=== PATIENT | female | born 2000 | race Hispanic/Latino ===

== ENCOUNTER 2023-04-08 09:43 | Outpatient (CLI) | payer OTHER | END 2023-04-08 09:44 | disposition home or self-care (01) | LOC: CSHULT 09:43 | PROVIDERS: ATTEND Family Medicine | DX: Z34.02 Encounter for supervision of normal first pregnancy, second trimester (principal); Z3A.19 19 weeks gestation of pregnancy | CPT/HCPCS: 76805 ==

== ENCOUNTER 2023-06-02 21:14 | Inpatient (IN) | payer OTHER ==
[2023-06-02] MEDS ORDERED: hydrALAZINE 20 MG/ML VIAL SLOW IVP PRN (22:01)
[2023-06-02] MEDS: Lactated Ringer's 1,000 ML IV SCH (22:27)
[2023-06-02 22:37] LABS: Bilirubin Neg (Negative); Blood, Urine Negative (Negative); Clarity Clear (Clear); Glucose, Urine (Dipstick) Normal (Negative); Ketone, Urine Negative (Negative); Leukocyte 25 (Negative); Nitrite Negative (Negative); Protein, Urine (Dipstick) 30 mg/dl (Neg-Trace); Urobilinogen Normal mg/dL (Less than 2)
[2023-06-02 23:02] LABS: Bacteria/HPF 2+ HPF (None Seen); CAUTI Indications for Culture Pregnancy; RBC/HPF 0-3 HPF (0-3); Squamous Epithelial 0-3 HPF (0-3)
[2023-06-02 23:03] LABS: Urine Culture Reflex Yes Yes
[2023-06-02 23:10] LABS: #Eosinphils 0.1 10x3/uL (0.0-0.5); #Monocytes 0.9 10x3/uL (0.0-1.1); #Neutrophils 9.2 10x3/uL (1.5-8.4); %Basophils 0.3 % (0.0-2.0); %Eosinophils 0.5 % (0.0-6.0); %Lymphocytes 22.9 % (18.0-47.0); %Monocytes 6.6 % (0.0-10.0); ALT (SGPT) 29 U/L (8-55); AST (SGOT) 20 U/L (5-34); Albumin 3.4 g/dL (3.5-5.0); Alkaline Phosphatase 136 U/L (40-110); Anion Gap 12 mmol/L (10-20); BUN (Urea Nitrogen) 11 mg/dL (7.0-18.7); Bilirubin, Total 0.2 mg/dL (0.2-1.2); Calc. Creatinine Clearance 153 mL/min (70-130); Calcium 9.2 mg/dL (7.8-10.44); Carbon Dioxide 21 mmol/L (22-29); Chloride 106 mmol/L (98-107); Estimated GFR 125; Globulin 3.7 g/dL (2.4-3.5); Glucose 97 mg/dL (70-105); Hematocrit 35.4 % (34.9-44.5); Mean Corpuscular HGB CONC 33.9 g/dL (32.0-36.0); Mean Corpuscular Hemoglobin 25.7 pg (27.0-33.0); Mean Corpuscular Volume 75.8 fl (81.6-98.3); Mean Platelet Volume 9.5 fl (7.4-10.4); Platelet Count 248 10x3/uL (150-450); Potassium 3.8 mmol/L (3.5-5.1); Protein, Total 7.1 g/dL (6.0-8.3); RBC Distribution Width 13.6 % (11.5-14.5); Red Blood Cell (RBC) Count 4.67 10x6/uL (3.90-5.03); Sodium 135 mmol/L (136-145); White Blood Cell (WBC) Count 13.3 10x3/uL (3.5-10.5)
[2023-06-03] MEDS: cefTRIAXone\\ROCEPHIN 1 GM in Sodium Chloride 0.9% 100 ML IVPB SCH (00:11)
[2023-06-03] MEDS ORDERED: Calcium Gluc 4.6 MEQ/10 ML (100 MG/ML) SLOW IVP PRN (00:25)
[2023-06-03] MEDS ORDERED: Labetalol HCl 100 MG/20 ML VIAL SLOW IVP PRN ×2 (00:25)
[2023-06-03] MEDS ORDERED: Lorazepam 2 MG/ML VIAL SLOW IVP PRN (00:25)
[2023-06-03] MEDS ORDERED: Sodium Chloride 0.9% 1,000 ML IV SCH (00:30)
[2023-06-03] MEDS: Acetaminophen 500 MG TAB PO PRN ×2 (03:26→16:52)
[2023-06-03 04:37] LABS: #Eosinphils 0.1 10x3/uL (0.0-0.5); #Monocytes 0.2 10x3/uL (0.0-1.1); #Neutrophils 7.1 10x3/uL (1.5-8.4); %Basophils 0.3 % (0.0-2.0); %Eosinophils 0.8 % (0.0-6.0); %Monocytes 2.5 % (0.0-10.0); %Neutrophils 74.3 % (40.0-75.0); Hematocrit 33.9 % (34.9-44.5); Hemoglobin 11.5 g/dL (12.0-15.5); Mean Corpuscular HGB CONC 33.9 g/dL (32.0-36.0); Mean Corpuscular Volume 76.5 fl (81.6-98.3); Platelet Count 225 10x3/uL (150-450); RBC Distribution Width 13.5 % (11.5-14.5); Red Blood Cell (RBC) Count 4.43 10x6/uL (3.90-5.03); White Blood Cell (WBC) Count 9.6 10x3/uL (3.5-10.5)
[2023-06-03 04:56] LABS: ALT (SGPT) 26 U/L (8-55); AST (SGOT) 19 U/L (5-34); Alkaline Phosphatase 117 U/L (40-110); Anion Gap 14 mmol/L (10-20); BUN (Urea Nitrogen) 10 mg/dL (7.0-18.7); Bilirubin, Total 0.2 mg/dL (0.2-1.2); Calc. Creatinine Clearance 162 mL/min (70-130); Calcium 8.5 mg/dL (7.8-10.44); Carbon Dioxide 19 mmol/L (22-29); Chloride 107 mmol/L (98-107); Estimated GFR 126; Globulin 3.2 g/dL (2.4-3.5); Glucose 125 mg/dL (70-105); Potassium 3.7 mmol/L (3.5-5.1); Protein, Total 6.2 g/dL (6.0-8.3); Sodium 136 mmol/L (136-145)
[2023-06-03] MEDS: metroNIDAZOLE 500 MG TAB PO SCH (06:07)
[2023-06-03] MEDS: Lactated Ringer's 1,000 ML IV SCH (06:53)
[2023-06-03] MEDS: Morphine 4 MG/ML VIAL SLOW IVP PRN (06:54)
[2023-06-03] MEDS ORDERED: hydrALAZINE 20 MG/ML VIAL SLOW IVP PRN (07:23)
[2023-06-03] MEDS ORDERED: Promethazine HCl 25 MG/ML VIAL IM PRN (07:23)
[2023-06-03] MEDS ORDERED: metroNIDAZOLE 500 MG TAB PO SCH (09:00)
[2023-06-03] MEDS: cefTRIAXone\\ROCEPHIN 2 GM in Sodium Chloride 0.9% 100 ML IVPB SCH (11:55)
[2023-06-03 13:14] LABS: Uric Acid 5.4 mg/dL (2.6-6.0)
[2023-06-03] MEDS: Ondansetron PF 4 MG/2 ML Vial ONE (13:41)
[2023-06-03] MEDS: Azithromycin 250 MG TAB PO SCH (17:49)
[2023-06-03 22:11] LABS: Chlam.trachomatis by PCR,Urine Not Detected (NotDetected); GC N.gonorrhoeae PCR,UrineVOID Not Detected (NotDetected)
[2023-06-04] MEDS ORDERED: cefTRIAXone\\ROCEPHIN 1 GM in Sodium Chloride 0.9% 100 ML IVPB SCH (00:30)
[2023-06-04] MEDS: Ondansetron PF 4 MG/2 ML Vial IVP PRN (01:47)
[2023-06-04] MEDS: Guaifenesin DM 100-10/5 ML UDCUP PO PRN (12:41)
[2023-06-04] MEDS: HYDROcodone/Acetaminophen 5/325 mg Tablet PO SCH (18:16)
[2023-06-04] MEDS: hydrALAZINE 20 MG/ML VIAL SLOW IVP PRN (19:00)
[2023-06-04] MEDS: Betamet Acet/Betamet Na Ph 30 MG/5 ML VIAL ONE (20:40)
[2023-06-04 21:25] LABS: Bilirubin Neg (Negative); Blood, Urine Negative (Negative); Clarity Clear (Clear); Glucose, Urine (Dipstick) Normal (Negative); Ketone, Urine Negative (Negative); Leukocyte Negative (Negative); Nitrite Negative (Negative); Protein, Urine (Dipstick) 100 mg/dl (Neg-Trace); Urobilinogen Normal mg/dL (Less than 2); pH, Urine 6.5 (5.0-9.0)
[2023-06-04 21:39] LABS: Bacteria/HPF Rare-Few HPF (None Seen); CAUTI Indications for Culture Pregnancy; RBC/HPF 0-3 HPF (0-3); WBC/HPF 0-3 HPF (0-3)
[2023-06-04 21:40] LABS: Urine Culture Reflex Yes Yes
[2023-06-05 00:34] LABS: #Basophils 0.1 10x3/uL (0.0-0.2); #Eosinphils 0.2 10x3/uL (0.0-0.5); #Monocytes 0.5 10x3/uL (0.0-1.1); #Neutrophils 13.9 10x3/uL (1.5-8.4); %Basophils 0.3 % (0.0-2.0); %Eosinophils 1.3 % (0.0-6.0); %Monocytes 3.3 % (0.0-10.0); Hematocrit 34.6 % (34.9-44.5); Mean Corpuscular HGB CONC 34.7 g/dL (32.0-36.0); Mean Corpuscular Volume 74.9 fl (81.6-98.3); Platelet Count 214 10x3/uL (150-450); RBC Distribution Width 13.5 % (11.5-14.5); Red Blood Cell (RBC) Count 4.62 10x6/uL (3.90-5.03); White Blood Cell (WBC) Count 15.9 10x3/uL (3.5-10.5)
[2023-06-05 00:46] LABS: ALT (SGPT) 31 U/L (8-55); AST (SGOT) 25 U/L (5-34); Albumin 3.1 g/dL (3.5-5.0); Alkaline Phosphatase 122 U/L (40-110); Anion Gap 12 mmol/L (10-20); Bilirubin, Total 0.2 mg/dL (0.2-1.2); Calc. Creatinine Clearance 160 mL/min (70-130); Calcium 8.6 mg/dL (7.8-10.44); Carbon Dioxide 18 mmol/L (22-29); Chloride 105 mmol/L (98-107); Estimated GFR 126; Globulin 3.3 g/dL (2.4-3.5); Glucose 100 mg/dL (70-105); Potassium 4.1 mmol/L (3.5-5.1); Protein, Total 6.4 g/dL (6.0-8.3); Sodium 131 mmol/L (136-145)
[2023-06-05 01:01] LABS: BUN (Urea Nitrogen) 6 mg/dL (7.0-18.7)
[2023-06-05 01:09] LABS: SARS-CoV-2 NAA Rapid Test Not Detected (NotDetected)
[2023-06-05] MEDS: Oseltamivir 75 MG CAP PO SCH ×2 (01:38→08:59)
[2023-06-05] MEDS: Vancomycin 1 GM in Sodium Chloride 0.9% 250 ML 250 ML IVPB SCH (04:49)
[2023-06-05] MEDS: Furosemide 20 MG (2 mL) VIAL SLOW IVP SCH (10:20)
[2023-06-05 12:13] LABS: Chlamydia trachomatis by NAA Negative (Negative)
[2023-06-05 12:47] LABS: Fetal Membranes Rupture No Membranes Rupture (No Rupture)
[2023-06-05 13:18] LABS: Syphilis Antibody Index 30.54 S/CO (<1.00 Non-Reactive)
[2023-06-05] MEDS: Labetalol HCl 100 MG TAB PO SCH (14:24)
[2023-06-05] MEDS: Azithromycin 250 MG TAB PO SCH (15:12)
[2023-06-05 17:24] LABS: Syphilis Antibody REACTIVE (Nonreactive)
[2023-06-05] MEDS: Betamet Acet/Betamet Na Ph 30 MG/5 ML VIAL IM SCH (21:16)
[2023-06-06] MEDS: Bicillin LA 2.4 MILL.UNITS/4 ML SYRINGE IM SCH (11:25)
[2023-06-06] MEDS: Azithromycin 250 MG TAB PO SCH (16:59)
[2023-06-06 17:14] LABS: HSV-1 IgG Type Specific <0.91 index (0.00-0.90); HSV-2 IgG Type Specific 6.36 index (0.00-0.90)
[2023-06-06] MEDS: Labetalol HCl 100 MG TAB PO SCH (23:39)
[2023-06-07] MEDS: Vancomycin 1 GM in Sodium Chloride 0.9% 250 ML 250 ML IVPB SCH (01:13)
[2023-06-07] MEDS: Labetalol HCl 100 MG TAB PO SCH ×3 (05:36→19:31)
[2023-06-07 07:23] LABS: Hematocrit 33.2 % (34.9-44.5); Hemoglobin 11.4 g/dL (12.0-15.5); Mean Corpuscular HGB CONC 34.3 g/dL (32.0-36.0); Mean Corpuscular Volume 75.6 fl (81.6-98.3); Mean Platelet Volume 10.6 fl (7.4-10.4); Platelet Count 212 10x3/uL (150-450); RBC Distribution Width 13.7 % (11.5-14.5); Red Blood Cell (RBC) Count 4.39 10x6/uL (3.90-5.03); White Blood Cell (WBC) Count 14.7 10x3/uL (3.5-10.5)
[2023-06-07 07:52] LABS: ALT (SGPT) 31 U/L (8-55); AST (SGOT) 27 U/L (5-34); Albumin 2.6 g/dL (3.5-5.0); Alkaline Phosphatase 100 U/L (40-110); Anion Gap 11 mmol/L (10-20); BUN (Urea Nitrogen) 11 mg/dL (7.0-18.7); Bilirubin, Total 0.2 mg/dL (0.2-1.2); Calc. Creatinine Clearance 165 mL/min (70-130); Calcium 7.7 mg/dL (7.8-10.44); Carbon Dioxide 21 mmol/L (22-29); Chloride 107 mmol/L (98-107); Estimated GFR 127; Glucose 101 mg/dL (70-105); Potassium 3.8 mmol/L (3.5-5.1); Protein, Total 5.6 g/dL (6.0-8.3); Sodium 135 mmol/L (136-145)
[2023-06-07] MEDS: Azithromycin 250 MG TAB PO SCH (08:46)
[2023-06-07] MEDS: hydrALAZINE 20 MG/ML VIAL SLOW IVP PRN (12:18)
[2023-06-08] MEDS: Magnesium Sulfate 20 gm/500 ml 20 GM/500 ML BAG ONE (13:54)
[2023-06-08] MEDS: hydrALAZINE 20 MG/ML VIAL ONE (13:54)
[2023-06-08] MEDS ORDERED: Bicitra 30 ML UDCUP PO PRN (14:58)
[2023-06-08] MEDS ORDERED: Famotidine/PF 20 mg/2ml Vial SLOW IVP PRN (14:58)
[2023-06-08 16:15] LABS: Vancomycin, Trough 18.2 ug/mL
[2023-06-08 17:41] LABS: Analyzer IN Cardio CS ICU; Base Excess (BEa) -5.1 mEq/L (-2.0 to +3.0); CO2 Tension 48.9 mmHg (35.0-45.0); Calcium, Ionized (arterial) 1.16 mmol/L (1.12-1.30); Carboxyhemoglobin (COHb) 0.3 gm% (0.0-3.0); Critical Notified Whom: SPESC; Hematocrit-ABG 37 % (36.0-47.0); Hemoglobin (Hb) 12.6 g/dL (12.0-16.0); O2 Tension (PaO2), arterial 72.7 mmHg (80.0-100.0); Potassium - ABG Lab 3.95 mmol/L (3.70-5.30); Puncture Site RRA
[2023-06-08 17:44] LABS: ALV-art Gradient 151.375 mmHg (0-20)
[2023-06-08] MEDS ORDERED: Electrolyte Replacement Protocol 1 EACH FS PRN (17:44)
[2023-06-08] MEDS ORDERED: Ventilator Sedation Protocol 1 EACH FS SCH (17:45)
[2023-06-08] MEDS: Morphine PF 10 MG/10 ML VIAL ONE (18:11)
[2023-06-08] MEDS: Ketorolac Tromethamine 30 MG (1 mL) VIAL ONE (18:12)
[2023-06-08] MEDS: Ondansetron PF 4 MG/2 ML Vial ONE (18:12)
[2023-06-08] MEDS: Dexamethasone 4 mg/ml Vial ONE (18:12)
[2023-06-08] MEDS: Glycopyrrolate 0.2 MG/ML 5 ML SYRINGE ONE (18:12)
[2023-06-08] MEDS: ePHEDrine Sulfate 50 MG/10 ML VIAL ONE (18:12)
[2023-06-08] MEDS ORDERED: Propofol BOLUS 1,000 MG/100 ML VIAL IV PRN (18:30)
[2023-06-08] MEDS ORDERED: Lorazepam 2 MG/ML VIAL SLOW IVP PRN ×2 (18:30→19:31)
[2023-06-08] MEDS ORDERED: Fentanyl BOLUS 250 ML IVPB PRN (18:30)
[2023-06-08] MEDS ORDERED: Morphine 2 MG/ML VIAL SLOW IVP PRN (18:30)
[2023-06-08] MEDS: FENTANYL 2,000MCG/100-0.9%NACL 100 ML IVPB SCH (18:40)
[2023-06-08] MEDS: Oxytocin 10 UNITS/ML VIAL ONE (18:47)
[2023-06-08] MEDS: Phenylephrine 40 MG/NS 250 ML 250 ML ONE (18:47)
[2023-06-08] MEDS: PHENYLEPHRINE-NS 100 MCG/ML 10 ML SYRINGE ONE (18:48)
[2023-06-08] MEDS: fentaNYL 50 mcg/mL 1 mL Vial ONE ×2 (18:51→18:52)
[2023-06-08] MEDS: PROPOFOL 20 ML ONE (18:51)
[2023-06-08] MEDS: Rocuronium Bromide 10 MG/ML (10ML VIAL) ONE ×2 (18:52)
[2023-06-08] MEDS: Midazolam HCl 2 mg/2 ml Vial ONE (18:52)
[2023-06-08] MEDS ORDERED: Bisacodyl 10 MG SUPP PR PRN (19:31)
[2023-06-08] MEDS ORDERED: Labetalol HCl 100 MG/20 ML VIAL SLOW IVP PRN ×2 (19:31)
[2023-06-08] MEDS ORDERED: hydrALAZINE 20 MG/ML VIAL SLOW IVP PRN ×2 (19:31)
[2023-06-08] MEDS ORDERED: Calcium Gluc 4.6 MEQ/10 ML (100 MG/ML) SLOW IVP PRN (19:31)
[2023-06-08] MEDS: Labetalol HCl 100 MG/20 ML VIAL ONE (19:56)
[2023-06-08] MEDS: Ipratropium/Albuterol 3 ML NEB NEB SCH (20:35)
[2023-06-08] MEDS: Labetalol HCl 100 MG/20 ML VIAL SLOW IVP SCH (20:47)
[2023-06-08] MEDS: Ferrous Sulfate 325 MG TAB PO SCH (21:26)
[2023-06-08] MEDS: Docusate 100 MG CAP PO SCH (21:26)
[2023-06-08] MEDS: Oseltamivir 6 MG/ML ORAL SUSP PO SCH (21:50)
[2023-06-08] MEDS: Magnesium Sulfate 20 gm/500 ml 20 GM/500 ML BAG IVPB SCH (23:52)
[2023-06-09] MEDS: Ketorolac Tromethamine 30 MG (1 mL) VIAL IVP SCH (00:27)
[2023-06-09] MEDS: Propofol 1,000 MG/100 ML VIAL IV PRN (03:04)
[2023-06-09 03:23] LABS: Hematocrit 31.9 % (34.9-44.5); Hemoglobin 10.8 g/dL (12.0-15.5); Mean Corpuscular HGB CONC 33.9 g/dL (32.0-36.0); Mean Corpuscular Hemoglobin 25.9 pg (27.0-33.0); Mean Corpuscular Volume 76.5 fl (81.6-98.3); Mean Platelet Volume 9.7 fl (7.4-10.4); Platelet Count 210 10x3/uL (150-450); RBC Distribution Width 13.8 % (11.5-14.5); Red Blood Cell (RBC) Count 4.17 10x6/uL (3.90-5.03); White Blood Cell (WBC) Count 24.6 10x3/uL (3.5-10.5)
[2023-06-09 03:33] LABS: MDiff Complete? YES
[2023-06-09 03:45] LABS: ALT (SGPT) 28 U/L (8-55); AST (SGOT) 22 U/L (5-34); Albumin 2.4 g/dL (3.5-5.0); Alkaline Phosphatase 95 U/L (40-110); Anion Gap 12 mmol/L (10-20); BUN (Urea Nitrogen) 15 mg/dL (7.0-18.7); Bilirubin, Total 0.2 mg/dL (0.2-1.2); Calc. Creatinine Clearance 146 mL/min (70-130); Calcium 7.1 mg/dL (7.8-10.44); Carbon Dioxide 20 mmol/L (22-29); Chloride 108 mmol/L (98-107); Estimated GFR 122; Globulin 2.5 g/dL (2.4-3.5); Glucose 131 mg/dL (70-105); Potassium 4.8 mmol/L (3.5-5.1); Protein, Total 4.9 g/dL (6.0-8.3); Sodium 135 mmol/L (136-145)
[2023-06-09 04:01] LABS: Critical Call Chemistry IMAZ.TPP @0350; Magnesium 7.4 mg/dL (1.6-2.6)
[2023-06-09 04:09] LABS: Actual Bicarbonate (HCO3a) 22.6 mEq/L (22-28); Analyzer IN Cardio CS ICU; Base Excess (BEa) -2.6 mEq/L (-2.0 to +3.0); CO2 Tension 40.4 mmHg (35.0-45.0); Calcium, Ionized (arterial) 1.08 mmol/L (1.12-1.30); Carboxyhemoglobin (COHb) 0.3 gm% (0.0-3.0); Critical Notified By: CP.PH; Hematocrit-ABG 34 % (36.0-47.0); Hemoglobin (Hb) 11.5 g/dL (12.0-16.0); Potassium - ABG Lab 4.63 mmol/L (3.70-5.30); Puncture Site LBA; RapidComm Collect By CP.PH; pH, Arterial 7.365 (7.35-7.45)
[2023-06-09 05:00] LABS: Band 11 % (5-11); Lymphocytes 9 % (21-51); Metamyelocyte 1 % (0-0); Neutrophil 79 % (42-75)
[2023-06-09 05:03] LABS: Microcytosis SLIGHT = 6-15 cells (100X) (0-5/hpf); Platelet Adequacy Comment Appears Adequate; Polychromasia SLIGHT = 2-3 cells (100X) (0-2/hpf)
[2023-06-09] MEDS ORDERED: Azithromycin 250 MG in Syringe 0 ML IVPB SCH (09:00)
[2023-06-09] MEDS: Azithromycin 250 MG, Admixture Fee 1 EACH in Sodium Chloride 0.9% 250 ML 250 ML IVPB SCH (09:55)
[2023-06-09] MEDS: Boostrix 0.5 ML (Tdap) VIAL (>/=7 yrs of age) IM ONE (12:04)
[2023-06-09] MEDS: Labetalol HCl 100 MG/20 ML VIAL SLOW IVP SCH (12:06)
[2023-06-09 14:51] LABS: Critical Call Chemistry NUR.MBS AT 14:48; Magnesium 8.3 mg/dL (1.6-2.6)
[2023-06-09] MEDS: Labetalol HCl 100 MG/20 ML VIAL SLOW IVP PRN (17:29)
[2023-06-09] MEDS: Labetalol HCl 200 MG TAB PO SCH (21:32)
[2023-06-09] MEDS: Lisinopril 10 MG TAB PO SCH (21:33)
[2023-06-09] MEDS: Oseltamivir 75 MG CAP PO SCH (21:34)
[2023-06-09] MEDS: Calcium Carbonate 500 MG ChewTAB PO PRN (21:41)
[2023-06-09] MEDS: DC Sedation Protocol FS ONE (21:52)
[2023-06-09] MEDS: Famotidine 20 MG TAB PO SCH (23:04)
[2023-06-09] MEDS: HYDROcodone/Acetaminophen 5/325 mg Tablet PO PRN (23:04)
[2023-06-10] MEDS: Simethicone Chewable 80 MG TAB PO PRN (09:07)
[2023-06-10] MEDS: HYDROcodone/Acetaminophen 5/325 mg Tablet PO PRN (13:43)
[2023-06-11] MEDS: hydrALAZINE 20 MG/ML VIAL SLOW IVP SCH (06:24)
[2023-06-11] MEDS: Amoxicillin/Potassium Clav 875 MG TAB PO SCH (06:46)
[2023-06-11 07:49] VITALS: BP 121/84; TEMP 98.2
[2023-06-11 08:49] VITALS: BMI 39.1
== END 2023-06-11 09:20 | disposition home or self-care (01) | DRG 786 ==
LOC: CSHLD/OP 21:14 → CSHLD 06-03 03:14 → EEVIPCON 06-03 07:24 → OBSVTOIN 06-03 07:24 → CSHLD 06-05 13:34 → CSHICU 06-08 16:47 → CSHLD 06-09 18:25 → CSHPP 06-09 20:10
PROVIDERS: ADMIT Family Medicine; ATTEND Family Medicine
PROC: 10D00Z1 Extraction of Products of Conception, Low, Open Approach (ICD-10-PCS; principal; 2023-06-08)
PROC: 4A133R1 Monitoring of Arterial Saturation, Peripheral, Percutaneous Approach (ICD-10-PCS; 2023-06-08)
PROC: 5A1935Z Respiratory Ventilation, Less than 24 Consecutive Hours (ICD-10-PCS; 2023-06-08)
DX: O14.14 Severe pre-eclampsia complicating childbirth (principal); J10.00 Influenza due to other identified influenza virus with unspecified type of pneumonia; J96.90 Respiratory failure, unspecified, unspecified whether with hypoxia or hypercapnia; O98.12 Syphilis complicating childbirth; Z3A.28 28 weeks gestation of pregnancy; Z37.0 Single live birth; O99.52 Diseases of the respiratory system complicating childbirth; J10.1 Influenza due to other identified influenza virus with other respiratory manifestations; Z79.899 Other long term (current) drug therapy; A53.9 Syphilis, unspecified
CPT/HCPCS: 0241U; 36415; 36416; 36600; 51702; 71045; 76816; 76819; 76856; 80053; 80202; 81001; 82570; 82805; 83605; 83735; 84112; 84156; 84550; 85025; 85027; 86593; 86695; 86696; 86780; 86850; 86900; 86901; 87040; 87086; 87255; 87480; 87491; 87510; 87591; 87660; 88307; 93306; 94002; 94003; 94640; 94760; 94762; 99285; J0360; J0456; J0561; J0696; J0702; J1100; J1885; J1940; J2250; J2270; J2274; J2405; J2590; J2704; J3010; J3370; J3475; J3490; J7050; J7120; J7620

== ENCOUNTER 2023-06-22 22:26 | Inpatient (IN) | payer OTHER ==
[2023-06-22 23:30] LABS: Bilirubin Neg (Negative); Blood, Urine 250 (Negative); Clarity Clear (Clear); Glucose, Urine (Dipstick) Normal (Negative); Ketone, Urine Negative (Negative); Leukocyte 500 (Negative); Nitrite Negative (Negative); Protein, Urine (Dipstick) 30 mg/dl (Neg-Trace); Specific Gravity, Urine 1.015 (1.005-1.030)
[2023-06-22 23:38] LABS: Amphetamine Not Detected (NotDetected); Barbiturates Screen Not Detected (NotDetected); Benzodiazepine Screen Not Detected (NotDetected); Cocaine Metabolite Screen Not Detected (NotDetected); Methadone Not Detected (NotDetected); Methamphetamine Not Detected (NotDetected); Opiate Screen Detected (NotDetected); Oxycodone Screen Not Detected (NotDetected); Phencyclidine (PCP) Not Detected (NotDetected); THC/Cannabinoid Screen Not Detected (NotDetected); Tricyclic Screen Not Detected (NotDetected)
[2023-06-22 23:39] LABS: Troponin I Less than 0.010 ng/mL (< 0.028)
[2023-06-22 23:40] LABS: Acetaminophen Less than 10 mcg/mL (10.0-30.0); Alcohol Less than 10.0 mg/dL (Less than 10); INR-International Normal Ratio 0.9; Lipase 29 U/L (8-78); PTT 27.1 sec (22.0-33.0); Prothrombin Time 10.1 sec (9.5-12.1); Salicylate Less than 8.0 mg/dL (15.0-30.0)
[2023-06-22 23:43] LABS: Bacteria/HPF 1+ HPF (None Seen); CAUTI Indications for Culture Alt mental st,lethar; Squamous Epithelial 0-3 HPF (0-3)
[2023-06-22 23:44] LABS: Urine Culture Reflex No No
[2023-06-22 23:56] LABS: #Basophils 0.1 10x3/uL (0.0-0.2); #Eosinphils 0.2 10x3/uL (0.0-0.5); #Monocytes 0.6 10x3/uL (0.0-1.1); #Neutrophils 5.4 10x3/uL (1.5-8.4); %Basophils 0.8 % (0.0-2.0); %Eosinophils 1.7 % (0.0-6.0); %Lymphocytes 34.4 % (18.0-47.0); %Monocytes 6.6 % (0.0-10.0); %Neutrophils 56.2 % (40.0-75.0); Hematocrit 34.4 % (34.9-44.5); Hemoglobin 11.4 g/dL (12.0-15.5); Mean Corpuscular HGB CONC 33.1 g/dL (32.0-36.0); Mean Corpuscular Hemoglobin 25.7 pg (27.0-33.0); Mean Corpuscular Volume 77.7 fl (81.6-98.3); Mean Platelet Volume 9.6 fl (7.4-10.4); Platelet Count 331 10x3/uL (150-450); RBC Distribution Width 14.8 % (11.5-14.5); Red Blood Cell (RBC) Count 4.43 10x6/uL (3.90-5.03); White Blood Cell (WBC) Count 9.6 10x3/uL (3.5-10.5)
[2023-06-23 00:02] LABS: ALT (SGPT) 22 U/L (8-55); AST (SGOT) 19 U/L (5-34); Alcohol Less than 10.0 mg/dL (Less than 10); Alkaline Phosphatase 116 U/L (40-110); Anion Gap 14 mmol/L (10-20); BUN (Urea Nitrogen) 15 mg/dL (7.0-18.7); Bilirubin, Total 0.3 mg/dL (0.2-1.2); Calc. Creatinine Clearance 0 mL/min (70-130); Calcium 9.2 mg/dL (7.8-10.44); Carbon Dioxide 23 mmol/L (22-29); Chloride 101 mmol/L (98-107); Estimated GFR 107; Globulin 3.7 g/dL (2.4-3.5); Glucose 99 mg/dL (70-105); Protein, Total 7.7 g/dL (6.0-8.3); Salicylate Less than 8.0 mg/dL (15.0-30.0); Sodium 134 mmol/L (136-145)
[2023-06-23] MEDS ORDERED: Lorazepam 1 MG TAB ONE (00:13)
[2023-06-23] MEDS ORDERED: cefTRIAXone (ROCEPHIN) 2 GM VIAL ONE (00:31)
[2023-06-23 01:29] LABS: Syphilis Antibody Index 28.73 S/CO (<1.00 Non-Reactive)
[2023-06-23 03:08] LABS: Syphilis Antibody REACTIVE (Nonreactive)
[2023-06-23] MEDS ORDERED: Ondansetron PF 4 MG/2 ML Vial ONE (03:54)
[2023-06-23] MEDS: Carvedilol 6.25 MG TAB PO SCH (08:00)
[2023-06-23] MEDS: Prenatal Vitamin 1 TAB PO SCH (08:00)
[2023-06-23] MEDS: Lisinopril 5 MG TAB PO SCH (08:00)
[2023-06-23] MEDS: Furosemide 20 MG TAB PO SCH (08:00)
[2023-06-23] MEDS: Ferrous Sulfate 325 MG TAB PO SCH (08:00)
[2023-06-23] MEDS: Enoxaparin 40 MG (0.4 mL) SYRINGE SC SCH (13:54)
[2023-06-23] MEDS: Polyethylene Glycol 3350 17 GM Packet PO SCH (18:56)
[2023-06-23] MEDS: Acetaminophen 325 MG TAB PO PRN (20:47)
[2023-06-24] MEDS: Polyethylene Glycol 3350 17 GM Packet PO SCH (09:06)
[2023-06-24] MEDS: Ketoconazole 2% Cream 15 gm Tube TOP SCH (09:09)
[2023-06-24] MEDS: Ondansetron PF 4 MG/2 ML Vial IVP PRN (09:29)
[2023-06-24 11:43] LABS: #Basophils 0.1 10x3/uL (0.0-0.2); #Eosinphils 0.1 10x3/uL (0.0-0.5); #Monocytes 0.5 10x3/uL (0.0-1.1); #Neutrophils 5.6 10x3/uL (1.5-8.4); %Basophils 0.7 % (0.0-2.0); %Eosinophils 1.3 % (0.0-6.0); %Lymphocytes 28.2 % (18.0-47.0); %Monocytes 5.8 % (0.0-10.0); %Neutrophils 63.8 % (40.0-75.0); Hematocrit 35.4 % (34.9-44.5); Hemoglobin 11.4 g/dL (12.0-15.5); Mean Corpuscular HGB CONC 32.2 g/dL (32.0-36.0); Mean Corpuscular Hemoglobin 24.9 pg (27.0-33.0); Mean Corpuscular Volume 77.3 fl (81.6-98.3); Mean Platelet Volume 9.3 fl (7.4-10.4); Platelet Count 365 10x3/uL (150-450); RBC Distribution Width 15.1 % (11.5-14.5); Red Blood Cell (RBC) Count 4.58 10x6/uL (3.90-5.03); White Blood Cell (WBC) Count 8.7 10x3/uL (3.5-10.5)
[2023-06-24 12:00] LABS: Prothrombin Time 10.4 sec (9.5-12.1)
[2023-06-24 12:04] LABS: ALT (SGPT) 21 U/L (8-55); AST (SGOT) 18 U/L (5-34); Albumin 4.1 g/dL (3.5-5.0); Alkaline Phosphatase 107 U/L (40-110); Anion Gap 12 mmol/L (10-20); BUN (Urea Nitrogen) 15 mg/dL (7.0-18.7); Bilirubin, Total 0.3 mg/dL (0.2-1.2); Calc. Creatinine Clearance 0 mL/min (70-130); Calcium 9.3 mg/dL (7.8-10.44); Carbon Dioxide 25 mmol/L (22-29); Chloride 106 mmol/L (98-107); Estimated GFR 120; Globulin 3.8 g/dL (2.4-3.5); Glucose 106 mg/dL (70-105); Potassium 4.1 mmol/L (3.5-5.1); Protein, Total 7.9 g/dL (6.0-8.3); Sodium 139 mmol/L (136-145)
[2023-06-24 12:42] LABS: HIV (1/2) Antibody/Antigen Non-Reactive (NonReactive); HIV 1/2 INDEX 0.13 S/CO (<1.00)
[2023-06-24] MEDS: HYDROcodone/Acetaminophen 5/325 mg Tablet PO PRN (18:20)
[2023-06-25] MEDS: Temazepam 15 MG CAP PO PRN (20:51)
[2023-06-26] MEDS ORDERED: Mag-Al 1200 mg/1200 mg/30 ML UDCUP PO PRN (13:02)
[2023-06-26] MEDS: Lorazepam 0.5 MG TAB PO PRN (13:55)
[2023-06-26] MEDS: Lorazepam 2 MG/ML VIAL SLOW IVP SCH (20:46)
[2023-06-27] MEDS: Lorazepam 2 MG/ML VIAL SLOW IVP SCH (09:23)
[2023-06-27 12:11] LABS: CSF Source CSF; Clarity Clear (Clear); Tube # 2
[2023-06-27 12:12] LABS: CSF RBC Count - Manual 2 /cu.mm (None Seen); CSF WBC/NonHematics Count-Man 1 /cu.mm (0-5)
[2023-06-28] MEDS: Lorazepam 2 MG/ML VIAL SLOW IVP PRN (12:25)
[2023-06-30] MEDS: Lorazepam 2 MG/ML VIAL SLOW IVP PRN (15:51)
[2023-07-01 09:40] VITALS: BP 122/89; TEMP 98.4
== END 2023-07-01 11:00 | disposition short-term general hospital (02) | DRG 776 ==
LOC: CSHERS 22:26 → CSHTELE 06-23 04:44
PROVIDERS: ADMIT Family Medicine; ATTEND Internal Medicine
PROC: 009U3ZX Drainage of Spinal Canal, Percutaneous Approach, Diagnostic (ICD-10-PCS; principal; 2023-06-23)
DX: O99.345 Other mental disorders complicating the puerperium (principal); O98.13 Syphilis complicating the puerperium; O14.95 Unspecified pre-eclampsia, complicating the puerperium; F53.1 Puerperal psychosis; A53.9 Syphilis, unspecified; R21 Rash and other nonspecific skin eruption; M25.50 Pain in unspecified joint; Z79.899 Other long term (current) drug therapy; G47.00 Insomnia, unspecified; O99.73 Diseases of the skin and subcutaneous tissue complicating the puerperium; B35.6 Tinea cruris; Z82.49 Family history of ischemic heart disease and other diseases of the circulatory system
CPT/HCPCS: 62270; 70450; 70553; 71045; 80053; 80143; 80179; 80306; 80307; 81001; 82140; 82945; 83690; 83735; 83880; 84157; 84443; 84484; 85025; 85610; 85730; 86592; 86593; 86780; 87389; 87529; 89051; 93005; 96374; 96375; J0696; J1650; J2060; J2405